=== PATIENT | male | born 1940 | race Caucasian/White ===

== ENCOUNTER → 2018-01-01 | Outpatient (CLI) | payer MEDICARE, BC, OTHER ==
[~2018-01-01] MED LIST: CLOBEX59 M1 TP; DAILY VITE1 EAC1 PO; FISH OIL 1,0001 EAC7 PO; FLOMAX0.4 MG PO; FOLIC ACID1 MG PO; GLIMEPIRIDE4 MG PO; INVOKANA300 MG PO; JANUMET 50/11 TABLET PO; KEFLEX500 MG PO; LO-DOSE ASPIRIN81 M2 PO; METHOTREXATE2.5 MG PO; NORVASC10 MG PO; PRAVACHOL40 MG PO; PROSCAR5 MG PO; TRULICITY0.75 MG/0. SC; VITAMIN D34000 UNIT PO; ZESTORETIC 20-1 EAC1 PO; [UNRECOGNIZED DRUG - OTHER] TP
== END | disposition home or self-care (01) ==
LOC: CDC 10:46
DX: Z01.810 Encounter for preprocedural cardiovascular examination (principal); C67.3 Malignant neoplasm of anterior wall of bladder
CPT/HCPCS: 93000